=== PATIENT | female | born 1970 | race Caucasian/White ===

== ENCOUNTER → 2017-09-04 | Outpatient (CLI) | payer OTHER | LOC: BRMIMAGING 14:55 | PROVIDERS: ATTEND Family Medicine | DX: Z12.31 Encounter for screening mammogram for malignant neoplasm of breast (principal) ==

== ENCOUNTER → 2018-11-12 | Outpatient (CLI) | payer OTHER | LOC: BRMIMAGING 14:30 ==

== ENCOUNTER → 2018-11-15 | Outpatient (CLI) | payer OTHER | LOC: BMCIMAGING 10:39 ==

== ENCOUNTER → 2018-11-22 | Day surgery (SDC) | payer OTHER | LOC: FIMAGING 07:14 ==